=== PATIENT | male | born 1965 | race Two or more races ===

== ENCOUNTER 2023-02-26 18:06 | Emergency (ER) | payer BC, SELFPAY ==
[2023-02-26 18:11] VITALS: BP 144/95; PULSE 118; RESP 16; TEMP 36.7; O2SAT 100
[2023-02-26 19:00] LABS: Basophils Absolute Auto 0.1 K/mm3 (0.0-0.1); Basophils Percent Auto 0.7 % (0.2-1.2); Eosinophils Percent Auto 0.2 % (0-4.4); Hematocrit 48.4 % (42.0-52.0); Hemoglobin 15.5 g/dL (14.0-18.0); Immature Granulocyte Absolute 0.06 K/mm3 (0.00-0.031); Immature Granulocyte Percent A 0.5 % (0-0.5); Lymphocytes Absolute Auto 1.77 K/mm3 (0.9-3.2); Lymphocytes Percent Auto 16.1 % (18.3-44.2); Mean Corpuscular Hemoglobin 25.5 pg (26-34); Mean Corpuscular Volume 79.5 fl (80-100); Mean Platelet Volume 10.6 fl (7.4-10.4); Monocytes Absolute Auto 0.6 K/mm3 (0.1-0.6); Monocytes Percent Auto 5.6 % (2.6-8.5); Neutrophils Absolute Auto 8.5 K/mm3 (1.3-6.7); Neutrophils Percent Auto 76.9 % (45.5-73.1); Platelet Count Result 308 k/mm3 (150-375); Red Blood Count 6.09 M/mm3 (4.6-6.20); Red Cell Distribution Width 16.4 % (11.5-14.5)
[2023-02-26 19:08] VITALS: BP 145/109; PULSE 110; RESP 16; O2SAT 99
[2023-02-26] MEDS: SODIUM CHLORIDE 0.9% IV 1,000 ML 999 ML IV CONT (19:11)
[2023-02-26] MEDS: ONDANSETRON INJ 4 MG/2 ML VIAL IV PUSH (19:12)
[2023-02-26] MEDS: BELLADONNA ALK/PHENOB ELIX 10 ML, MAG HYDROX/ALUMINUM HYD/SIMETH 30 ML, LIDOCAINE HCL 2... PO (19:14)
--- NOTE | 2023-02-26 19:15 | ECG_ITS ---
Measurements Intervals [place] Rate: 98 P: 41 IN: 141 QRS: 20 QRSD: 77 T: 60 QT: 361 QTc: 461 Interpretive Statements SINUS RHYTHM POSSIBLE LEFT ATRIAL ENLARGEMENT CANNOT RULE OUT SEPTAL INFARCT, AGE INDETERMINATE BORDERLINE ST ABNORMALITY- DIFFUSE LEADS ABNORMAL ECG NO PREVIOUS ECG AVAILABLE FOR COMPARISON Electronically Signed On 02-27-2023 6:46:57 CDT by Darrell Hays D.O.
--- NOTE | 2023-02-26 19:15 | ED.GENADULT ---
HPI - General Adult General Chief complaint: Abdominal Pain Stated complaint: N/V X2D Time Seen by Provider: 02/26/23 18:46 History of Present Illness HPI narrative: 57-year-old male presented to the emergency department for evaluation of intermittent nausea vomiting and epigastric discomfort. Related Data Allergies Allergy/AdvReac Type Severity Reaction Status Date / Time No Known Allergies Allergy Verified 02/26/23 19:18 Review of Systems Review of Systems: All systems reviewed & are unremarkable except as noted in HPI and below Exam Narrative: APPEARANCE: Well appearing, no pain, no distress, well-nourished. HEAD: normocephalic, atraumatic. EYES: PERRLA/EOMI, conjunctivae clear. NOSE: Normal no drainage EARS:TMS clear with good light reflex. THROAT: Pharynx clear, no exudate. NECK: Supple. No adenopathy, no masses. RESPIRATORY: Airway patent, respirations nonlabored. Clear to auscultation bilaterally, no rales, rhonchi, wheezing. CARDIOVASCULAR: Regular rate and rhythm without murmurs rubs or gallops. ABDOMINAL: Soft, nontender, nondistended, normal bowel sounds MUSCULOSKELETAL: Moves all extremities. Strength/ROM intact, No edema, No calf tenderness. NEURO: Alert. Cranial nerves II through XII intact. Good gait. Good coordination SKIN: Warm, dry. Normal Color Course Course Emergency Course: 57-year-old male presented emergency department for evaluation of intermittent nausea and vomiting. Patient states that his nausea vomiting had resolved in the emergency department. Patient is anxious but otherwise well-appearing. Patient does admit to drinking alcohol. Suspect alcohol withdrawal. Patient was hypertensive but declined treatment in the emergency department. Patient family were updated and results of the work-up patient was encouraged to have a clear liquid diet for the next few days and was provided medications for nausea control. All question concerns were addressed and patient was comfortable with the plan for discharge and close follow-up. Vital Signs Vital signs: Vital Signs Temperature 98.1 F 02/26/23 18:11 Pulse Rate 118 H 02/26/23 18:11 Respiratory Rate 16 02/26/23 18:11 Blood Pressure 144/95 H 02/26/23 18:11 Pulse Oximetry 100 02/26/23 18:11 Oxygen Delivery Room Air 02/26/23 18:11 Temperature 98.1 F 02/26/23 18:11 Pulse Rate 110 H 02/26/23 21:04 Respiratory Rate 18 02/26/23 21:04 Blood Pressure 188/102 H 02/26/23 21:04 Pulse Oximetry 100 02/26/23 21:04 Oxygen Delivery Room Air 02/26/23 18:11 Medical Decision Making Differential Diagnosis Differential Diagnosis: Alcohol withdrawal, gastroenteritis, nausea vomiting diarrhea Vital Signs Vital Signs: Vital Signs Temperature 98.1 F 02/26/23 18:11 Pulse Rate 118 H 02/26/23 18:11 Respiratory Rate 16 02/26/23 18:11 Blood Pressure 144/95 H 02/26/23 18:11 Pulse Oximetry 100 02/26/23 18:11 Oxygen Delivery Room Air 02/26/23 18:11 Temperature 98.1 F 02/26/23 18:11 Pulse Rate 110 H 02/26/23 21:04 Respiratory Rate 18 02/26/23 21:04 Blood Pressure 188/102 H 02/26/23 21:04 Pulse Oximetry 100 02/26/23 21:04 Oxygen Delivery Room Air 02/26/23 18:11 Lab Data 02/26/23 18:55 02/26/23 18:55 Labs: Lab Results 02/26/23 Range/Units 18:55 WBC 11.0 H (4.5-10.0) K/mm3 RBC 6.09 (4.6-6.20) M/mm3 Hgb 15.5 (14.0-18.0) g/dL Hct 48.4 (42.0-52.0) % MCV 79.5 L (80-100) fl MCH 25.5 L (26-34) pg MCHC 32.0 (32-36) g/dl RDW 16.4 H (11.5-14.5) % Plt Count 308 (150-375) k/mm3 MPV 10.6 H (7.4-10.4) fl Immature Gran % (Auto) 0.5 (0-0.5) % Neut % (Auto) 76.9 H (45.5-73.1) % Lymph % (Auto) 16.1 L (18.3-44.2) % [place] % (Auto) 5.6 (2.6-8.5) % Eos % (Auto) 0.2 (0-4.4) % Baso % (Auto) 0.7 (0.2-1.2) % Lymph # (Auto) 1.77 (0.9-3.2) K/mm3 [place] # (Auto) 0.6 (0.1-0.6) K/mm3 Eos # (Auto) 0.0 (0-0.3) K/
[2023-02-26 19:26] LABS: Alanine Aminotransferase 20 U/L (6-50); Albumin Level 4.8 g/dL (3.5-5.1); Alkaline Phosphatase 58 U/L (38-126); Anion Gap 18 mmol/L (8-16); Aspartate Amino Transferase 23 U/L (17-59); Bilirubin,Total 1.3 mg/dL (0.2-1.3); Blood Urea Nitrogen 14 mg/dL (9-20); Calcium 9.1 mg/dL (8.4-10.2); Carbon Dioxide 18 mmol/L (22-30); Chloride 101 mmol/L (98-107); Estimated Glomerular Filt Rate > 60; Glucose 178 mg/dL (65-110); Potassium 3.9 mmol/L (3.4-5.0); Sodium 137 mmol/L (137-145)
[2023-02-26 20:18] VITALS: PULSE 96; RESP 18; O2SAT 100
[2023-02-26 21:04] VITALS: BP 188/102; PULSE 110; RESP 18; O2SAT 100
== END 2023-02-26 21:09 | disposition home or self-care (01) ==
PROVIDERS: Emergency Provider Emergency Medicine; PCP Family Medicine
DX: R11.2 Nausea with vomiting, unspecified (principal); R94.31 Abnormal electrocardiogram [ECG] [EKG]
CPT/HCPCS: 36415; 80053; 85025; 93005; 96361; 96374; 99284; A9270; J2405; J7030

== ENCOUNTER 2023-03-03 09:56 | Emergency (ER) | payer BC, SELFPAY ==
[2023-03-03] VITALS (10 sets, daily range): BP systolic 132–194; BP diastolic 80–132; PULSE 78–111; RESP 16–28; TEMP 36.3–37; O2SAT 98–100
--- NOTE | ~2023-03-03 | CT_ITS ---
CT of the Abdomen and Pelvis: Indication: Abdominal pain Technique: 2.5 mm axial scans were obtained through the abdomen and pelvis following intravenous adm inistration of 100 cc of Omnipaque 350. Dose reduction technique was used on this scan by utilizing a utomated exposure control and iterative reconstruction technique. The dose-length product (DLP) was 9 47.57 mGy-cm. Findings: Scans through the lung bases are unremarkable. The liver, spleen, pancreas, gallbladder, adrenals and kidneys are within normal limits. No evidence of aortic aneurysm. No lymphadenopathy. No bowel obstruction or bowel wall thickening. Normal appendix. Images through the pelvis were performed. Urinary bladder unremarkable. Prostate gland and seminal ve sicles are unremarkable. Impression: No significant abnormalities seen. Reviewed, dictated and finalized at [facility]. Impression: No significant abnormalities seen.
--- NOTE | ~2023-03-03 | XR_ITS ---
Portable chest x-ray Comparison: 06/19/2014 Clinical History: Pain, headache Findings: Lungs are clear, without focal consolidation or pleural effusion. Cardiomediastinal silho uette is stable. Bones and soft tissues are unremarkable. Impression: Clear lungs. Reviewed, dictated and finalized at location . Impression: Clear lungs.
--- NOTE | 2023-03-03 09:59 | ECG_ITS ---
Measurements Intervals [place] Rate: 97 P: 55 [place]: 143 QRS: 42 QRSD: 81 T: 50 QT: 357 QTc: 455 Interpretive Statements SINUS RHYTHM WITH SINUS ARRHYTHMIA BORDERLINE ST ABNORMALITY- DIFFUSE LEADS BORDERLINE ECG COMPARED TO ECG 02/26/2023 19:23:49 SINUS ARRHYTHMIA NOW PRESENT Electronically Signed On 03-03-2023 11:04:57 CDT by Darrell Hays D.O.
[2023-03-03] MEDS: ONDANSETRON INJ 4 MG/2 ML VIAL IV PUSH (10:28)
[2023-03-03 10:30] LABS: Basophils Absolute Auto 0.1 K/mm3 (0.0-0.1); Basophils Percent Auto 0.6 % (0.2-1.2); Eosinophils Percent Auto 0.1 % (0-4.4); Hematocrit 43.8 % (42.0-52.0); Hemoglobin 14.2 g/dL (14.0-18.0); Immature Granulocyte Absolute 0.01 K/mm3 (0.00-0.031); Immature Granulocyte Percent A 0.1 % (0-0.5); Lymphocytes Absolute Auto 1.33 K/mm3 (0.9-3.2); Lymphocytes Percent Auto 16.9 % (18.3-44.2); Mean Corpuscular HGB Conc 32.4 g/dl (32-36); Mean Corpuscular Hemoglobin 25.4 pg (26-34); Mean Corpuscular Volume 78.4 fl (80-100); Mean Platelet Volume 10.5 fl (7.4-10.4); Monocytes Absolute Auto 0.4 K/mm3 (0.1-0.6); Monocytes Percent Auto 5.5 % (2.6-8.5); Neutrophils Percent Auto 76.8 % (45.5-73.1); Platelet Count Result 288 k/mm3 (150-375); Red Blood Count 5.59 M/mm3 (4.6-6.20); White Blood Count 7.9 K/mm3 (4.5-10.0)
[2023-03-03 10:41] LABS: Alanine Aminotransferase 27 U/L (6-50); Albumin Level 4.7 g/dL (3.5-5.1); Alkaline Phosphatase 57 U/L (38-126); Anion Gap 15 mmol/L (8-16); Aspartate Amino Transferase 30 U/L (17-59); Blood Urea Nitrogen 13 mg/dL (9-20); Calcium 9.3 mg/dL (8.4-10.2); Carbon Dioxide 19 mmol/L (22-30); Chloride 103 mmol/L (98-107); Estimated CRCL calculation 85 ml/min; Estimated Glomerular Filt Rate > 60; Glucose 177 mg/dL (65-110); Lipase 584 U/L (23-300); Potassium 3.9 mmol/L (3.4-5.0); Sodium 137 mmol/L (137-145)
[2023-03-03 11:15] LABS: Appearance Urine Clear (Clear); Bacteria Urine None Seen /hpf; Bilirubin Urine Negative (Negative); Blood Urine Negative (Negative); Color Urine Yellow (Yellow); Glucose Urine UA 3+ mg/dL (Negative); Ketones Urine 2+ mg/dL (Negative); Leukocyte Esterase Ur Negative LEU/UL (Negative); Nitrate Urine Negative (Negative); Non Pathogenic Casts 0-2; Protein Urine 2+ mg/dL (Negative); RBC Urine 0-2 /hpf (0-2); Specific Grav Ur 1.024 (1.001-1.035); Squamous Epithelial Cell Urine None seen /hpf (Few); Urobilinogen Urine 0.2 mg/dL (<2.0); WBC Urine 0-5 /hpf; pH Urine 7.5 (5.0-9.0)
[2023-03-03 11:22] LABS: Add Urine Microscopic? YES
--- NOTE | 2023-03-03 11:30 | ED.GENADULT ---
HPI - General Adult General Chief complaint: Nausea/Vomiting/Diarrhea Stated complaint: Chest pain Time Seen by Provider: 03/03/23 10:15 Source: patient Mode of arrival: ambulatory Limitations: no limitations History of Present Illness HPI narrative: This is a 57-year-old male who presents to the ED with chief complaint of nausea and vomiting beginning this morning shortly after waking up. Patient states that he has had around 15 episodes of vomiting today. States he was seen here for the same a few days ago and was discharged in stable condition with nausea controlled. Today he states he is starting to have some left lower and left upper quadrant pain. He denies specific chest pain but points to his LUQ. Denies shortness of breath. Denies fevers or chills. Denies cough, urinary problems, problems with bowel movements. Related Data Allergies Allergy/AdvReac Type Severity Reaction Status Date / Time No Known Allergies Allergy Verified 02/26/23 19:18 Exam Narrative: GENERAL: Appears in pain. Breathing heavy. HEAD: Normocephalic, atraumatic. EYES: PERRLA and EOMI. ENT: Nares clear, no rhinorrhea or epistaxis. Mucous membranes moist. Oropharynx without tonsillar hypertrophy exudate or other lesions. NECK: Supple. No adenopathy or masses. CHEST: No respiratory distress. Clear to auscultation. No wheezes rales or rhonchi HEART: Regular rate and rhythm. No murmur heard. Normal peripheral pulses. ABDOMEN: Moderate left lower quadrant tenderness. Mild left upper quadrant tenderness. Soft, nondistended, normal active bowel sounds. Negative Shah sign. Negative McBurney's point. negative peritoneal signs. MSK: Normal range of motion. No edema. SKIN: Warm, dry, no rash. NEURO: Alert and oriented x3. No focal deficits. PSYCH: Normal mood and affect. Course Course Emergency Course: He is initially denying pain meds as they make him feel nauseous. Reevaluation 1230: Symptoms of nausea and pain have fully resolved. Reevaluation 1348: He is still somewhat tachycardic and tachypneic in the room. Appears anxious. I discussed alcohol use with him and he states he drinks 2-3 times a week and usually drinks around 4 beers with liquor when he drinks. He states his last drink was Monday. EtOH less than 10. Vital Signs Vital signs: Vital Signs Temperature 97.3 F L 03/03/23 10:14 Pulse Rate 80 03/03/23 10:14 Respiratory Rate 20 03/03/23 10:14 Blood Pressure 187/114 H 03/03/23 10:14 Pulse Oximetry 100 03/03/23 10:14 Oxygen Delivery Room Air 03/03/23 10:14 Temperature 98.6 F 03/03/23 14:22 Pulse Rate 78 03/03/23 14:22 Respiratory Rate 16 03/03/23 14:22 Blood Pressure 160/99 H 03/03/23 14:22 Pulse Oximetry 98 03/03/23 14:22 Oxygen Delivery Room Air 03/03/23 10:14 Medical Decision Making MDM Narrative Medical decision making narrative: This is a 57-year-old male who presents to the ED with chief complaint of nausea and vomiting sudden onset this morning about 5 hours prior to arrival. Vitals show tachycardia in the 110s to 120s. This improved greatly with fluids as he is now down in the 100s. He is slightly tachypneic. He has left lower quadrant tenderness on exam. Lab work is largely unremarkable. His lipase is elevated to 584, however liver labs are unremarkable. Blood sugar is 177. Lactic acid normal. Urinalysis significant for 2+ proteins, 3+ glucose, 2+ ketones. He does appear very dehydrated. He was given a bolus of 2 L of normal saline. He never needed any pain medications, and improved with Zofran and Phenergan. EKG unremarkable as well as negative serial troponins. Again reiterates that he is not having any chest pain or shortness of breath. Discussed with patient and his family members. They have his daughter on the phone who is a physician. We all came to agreement that with his negative work-up today and able to tolerate p.o. that he should be able t
[2023-03-03] MEDS: PROMETHAZINE HCL 25 MG/ML AMPUL 12.5 MG IV PUSH (11:52)
[2023-03-03 11:53] LABS: Troponin I < 0.012 ng/mL (0.000-0.034)
[2023-03-03] MEDS: SODIUM CHLORIDE 0.9% IV 1,000 ML 999 ML IV CONT ×2 (11:53)
[2023-03-03 13:55] LABS: Ethanol < 10 mg/dL (<10)
[2023-03-03 14:09] LABS: Troponin I < 0.012 ng/mL (0.000-0.034)
== END 2023-03-03 14:24 | disposition home or self-care (01) ==
PROVIDERS: Emergency Provider Physician Assistant; PCP Family Medicine
DX: R11.2 Nausea with vomiting, unspecified (principal); E86.0 Dehydration
CPT/HCPCS: 36415; 71045; 74177; 80053; 80307; 81001; 83690; 84484; 85025; 93005; 96361; 96374; 96375; 99284; J2405; J2550; J7030; Q9967

== ENCOUNTER 2023-03-05 14:33 | Observation (INO) | payer BC, SELFPAY ==
[2023-03-05] VITALS (19 sets, daily range): BP systolic 112–166; BP diastolic 77–127; PULSE 82–123; RESP 15–31; TEMP 36.6; O2SAT 97–100; BMI 33.3
--- NOTE | ~2023-03-05 | XR_ITS ---
XR chest 2V DATE: 03/05/2023 15:20 INDICATION: Nausea and vomiting for several days TECHNIQUE: PA and lateral views COMPARISON: 03/03/2023 portable AP chest FINDINGS: Normal heart size. No hilar or mediastinal enlargement. No pulmonary infiltrate or consolid ation, pleural effusion or pulmonary vascular congestion or pneumothorax is detected. Degenerative spurring of the thoracic spine. IMPRESSION: No active cardiac pulmonary disease Degenerative spurring of the thoracic spine Reviewed, dictated and finalized at location [facility].
--- NOTE | ~2023-03-05 | CT_ITS ---
EXAMINATION: CT brain wo con DATE: 03/05/2023 18:18 INDICATION: Persistent nausea and vomiting. Rule out intracranial mass lesion. TECHNIQUE: Computed tomography (CT) of the head was performed without intravenous contrast. The mA wa s adjusted according to patient size. Iterative reconstruction technique was employed. Exam dose: 60 5.33 mGy-cm total exam DLP. COMPARISON: 06/18/2014 CTA brain 06/18/2014 MR brain/brainstem 06/18/2014 CT brain FINDINGS: There is some intravenous contrast material on board from the CTA chest abdomen pelvis exam ination performed earlier same date. There is nonspecific diminished attenuation of the cerebral white matter, likely due to chronic small vessel ischemic changes. Bilateral carotid siphon internal carotid artery calcifications and basilar and bilateral vertebral artery calcifications are noted. No intracranial mass lesion or hemorrhage or cerebrovascular accident, midline shift shift or mass ef fect is detected. Minimal bilateral basal ganglia calcification. No subdural or epidural hematoma. Occasional right mastoid effusions are noted. The left mastoid air cells are normally developed and a erated. The included paranasal sinuses are unremarkable. No fracture or bone destruction of the cranial vault. IMPRESSION: Cerebral atherosclerosis and chronic small vessel ischemic changes of the cerebral white matter No acute intracranial finding Reviewed, dictated and finalized at [facility]. Reviewed, dictated and finalized at location [facility].
--- NOTE | ~2023-03-05 | CT_ITS ---
EXAMINATION: CTA chest abdomen pelvis DATE: 03/05/2023 16:26 INDICATION: Hypertension. Persistent nausea and vomiting. TECHNIQUE: Computed tomography angiography (CTA) of the chest, abdomen and pelvis was performed with 100 mL Omnipaque-350 intravenous contrast timed to evaluate the pulmonary arteries. Coronal maximum i ntensity projection 3D-reconstructions were created by the technologist. Automated exposure control a nd iterative reconstruction technique were employed. Exam dose: 1309.58 mGy-cm total exam DLP. COMPARISON: 03/05/2023 2 view chest 03/03/2023 CT abdomen pelvis FINDINGS: There is no evidence of pulmonary embolism. No thoracic aortic aneurysm or dissection. Heart size is within normal limits. No pericardial or pleural effusion. No hilar or mediastinal mass lesion or lymphadenopathy. Small sliding hiatal hernia. No pulmonary infiltrate or consolidation. The liver, gallbladder, bile ducts, spleen, pancreas, pancreatic duct, and adrenal glands and kidneys appear unremarkable. No urinary tract calculus or hydroureteronephrosis. There is diffuse thickening of the urinary bladder wall which may be due to mild prostatomegaly or cy stitis. Correlation with urinalysis is recommended. Normal caliber of the abdominal aorta. No intraperitoneal or retroperitoneal or pelvic mass lesion or adenopathy or ascites. Normal appendix. No bowel obstruction, bowel wall thickening, pneumatosis or intraperitoneal free air . Very small fat-containing umbilical hernia. The lungs are clear of infiltrate or consolidation. Degenerative changes of the cervical and thoracic and to a lesser extent lumbar spine. No suspicious osteolytic or osteoblastic lesions. IMPRESSION: Normal appendix; no bowel obstruction or free air Small sliding hiatal hernia Reviewed, dictated and finalized at [facility]. Reviewed, dictated and finalized at location A.
--- NOTE | 2023-03-05 14:41 | ECG_ITS ---
Measurements Intervals [place] Rate: 91 P: 51 GA: 139 QRS: 51 QRSD: 78 T: 66 QT: 324 QTc: 399 Interpretive Statements SINUS RHYTHM WITH SINUS ARRHYTHMIA CANNOT RULE OUT SEPTAL INFARCT, AGE INDETERMINATE ST-T WAVE ABNORMALITY IN DIFFUSE LEADS- CONSIDER ISCHEMIA ABNORMAL ECG COMPARED TO ECG 03/03/2023 10:07:57 MYOCARDIAL INFARCT FINDING NOW PRESENT ST-T WAVE ABNORMALITY IS WORSE Electronically Signed On 03-05-2023 16:24:50 CDT by Darrell Hays D.O.
[2023-03-05] MEDS: ONDANSETRON INJ 4 MG/2 ML VIAL IV PUSH (15:02)
[2023-03-05] MEDS: FAMOTIDINE 20 MG/2 ML VIAL IV PUSH (15:04)
[2023-03-05] MEDS: SODIUM CHLORIDE 0.9% IV 1,000 ML 999 ML IV CONT (15:05)
--- NOTE | 2023-03-05 15:08 | ED.GENADULT ---
HPI - General Adult General Chief complaint: Nausea/Vomiting/Diarrhea Stated complaint: headache/vomiting/high BP Time Seen by Provider: 03/05/23 14:54 History of Present Illness HPI narrative: 57 year old male history of HTN, DM presented with nausea/vomiting and no BM. Per patient, he has been having ongoing nausea and non bilious non bloody emesis for the past two days. He reports he was seen here previously and is having similar symptoms. Reports last BM 2 days ago. Is having flatus. Denied fevers/chills, chest pain, shortness of breath. Related Data Allergies Allergy/AdvReac Type Severity Reaction Status Date / Time No Known Allergies Allergy Verified 03/05/23 14:34 Review of Systems Review of Systems: See HPI Exam Narrative: General: Alert, calm and cooperative, no acute distress, phonating, sitting comfortably during visit HEENT: Pupils equal round and reactive to light, extra ocular movements intact, no conjunctival injection, head atraumatic, neck supple without meningismus Cardiovascular: Regular rate and rhythm, no visible jugular venous distension Respiratory: Lungs clear to auscultation bilaterally, no wheezing/rales/rhonchi Abdominal: soft, non-tender, non-distended, no guarding, no rebound/peritoneal signs, no costovertebral tenderness to palpation Back: no midline tenderness to palpation, no step offs Extremities: No edema, palpable peripheral pulses, warm, well perfused, no tenderness to bilateral calves Neurological: Alert, moving all extremities symmetrically Course Vital Signs Vital signs: Vital Signs Temperature 97.9 F 03/05/23 14:38 Pulse Rate 107 H 03/05/23 14:38 Respiratory Rate 22 H 03/05/23 14:38 Blood Pressure 160/103 H 03/05/23 14:38 Pulse Oximetry 100 03/05/23 14:38 Oxygen Delivery Room Air 03/05/23 14:38 Temperature 97.9 F 03/05/23 14:38 Pulse Rate 100 03/05/23 15:01 Respiratory Rate 26 H 03/05/23 15:01 Blood Pressure 156/115 H 03/05/23 15:01 Pulse Oximetry 100 03/05/23 15:01 Oxygen Delivery Room Air 03/05/23 14:38 Medical Decision Making MDM Narrative Medical decision making narrative: 57 year old male history of DM, HTN presented with nausea/vomiting, no BM in two days. Physical exam benign, abdomen soft and non tender, vitals stable. Differential diagnosis includes but not limited to: cholecystitis vs pancreatitis vs SBO. Bloodwork reviewed, lipase 600s, increase from prior. Trop x2 negative. EKG with TWI, unchanged x2, without STEMI or STEMI equivalents. CTA abd/pelv without acute intra-abdominal process. Patient continuing not to tolerate oral intake. History and exam suggestive of acute pancreatitis. IV fluids and anti-emetics given. Given acute nature of presenting disease process and potential for decompensation, the patient would benefit from medical admission for further optimization and management. Vital Signs Vital Signs: Vital Signs Temperature 97.9 F 03/05/23 14:38 Pulse Rate 107 H 03/05/23 14:38 Respiratory Rate 22 H 03/05/23 14:38 Blood Pressure 160/103 H 03/05/23 14:38 Pulse Oximetry 100 03/05/23 14:38 Oxygen Delivery Room Air 03/05/23 14:38 Temperature 97.9 F 03/05/23 14:38 Pulse Rate 100 03/05/23 15:01 Respiratory Rate 26 H 03/05/23 15:01 Blood Pressure 156/115 H 03/05/23 15:01 Pulse Oximetry 100 03/05/23 15:01 Oxygen Delivery Room Air 03/05/23 14:38 Lab Data 03/05/23 15:06 03/05/23 15:06 Labs: Lab Results 03/05/23 03/05/23 03/05/23 Range/Units 15:05 15:06 15:14 WBC 12.3 H (4.5-10.0) K/mm3 RBC 5.74 (4.6-6.20) M/mm3 Hgb 14.7 (14.0-18.0) g/dL Hct 44.6 (42.0-52.0) % MCV 77.7 L (80-100) fl MCH 25.6 L (26-34) pg MCHC 33.0 (32-36) g/dl RDW 15.0 H (11.5-14.5) % Plt Count 305 (150-375) k/mm3 MPV 10.9 H (7.4-10.4) fl Immature Gran % (Auto) 0.3 (0-0.5) % Neut % (Auto) 75.6 H (45.5-
[2023-03-05 15:11] LABS: Basophils Absolute Auto 0.1 K/mm3 (0.0-0.1); Basophils Percent Auto 0.6 % (0.2-1.2); Eosinophils Absolute Auto 0.1 K/mm3 (0-0.3); Eosinophils Percent Auto 0.9 % (0-4.4); Hematocrit 44.6 % (42.0-52.0); Hemoglobin 14.7 g/dL (14.0-18.0); Immature Granulocyte Absolute 0.04 K/mm3 (0.00-0.031); Immature Granulocyte Percent A 0.3 % (0-0.5); Lymphocytes Absolute Auto 2.06 K/mm3 (0.9-3.2); Lymphocytes Percent Auto 16.7 % (18.3-44.2); Mean Corpuscular Hemoglobin 25.6 pg (26-34); Mean Corpuscular Volume 77.7 fl (80-100); Mean Platelet Volume 10.9 fl (7.4-10.4); Monocytes Absolute Auto 0.7 K/mm3 (0.1-0.6); Monocytes Percent Auto 5.9 % (2.6-8.5); Neutrophils Absolute Auto 9.3 K/mm3 (1.3-6.7); Neutrophils Percent Auto 75.6 % (45.5-73.1); Platelet Count Result 305 k/mm3 (150-375); Red Blood Count 5.74 M/mm3 (4.6-6.20); White Blood Count 12.3 K/mm3 (4.5-10.0)
[2023-03-05 15:20] LABS: Lactic Acid Reflex 1.5 mmol/L (0.7-2.0)
[2023-03-05 15:25] LABS: Appearance Urine Cloudy (Clear); Bacteria Urine None Seen /hpf; Bilirubin Urine Negative (Negative); Blood Urine Negative (Negative); Color Urine Yellow (Yellow); Glucose Urine UA 3+ mg/dL (Negative); Ketones Urine 1+ mg/dL (Negative); Leukocyte Esterase Ur Negative LEU/UL (Negative); Nitrate Urine Negative (Negative); Non Pathogenic Casts 0-2; Protein Urine 1+ mg/dL (Negative); RBC Urine 0-2 /hpf (0-2); Squamous Epithelial Cell Urine None seen /hpf (Few); Urobilinogen Urine 0.2 mg/dL (<2.0); WBC Urine 0-5 /hpf
[2023-03-05 15:34] LABS: Troponin I < 0.012 ng/mL (0.000-0.034)
[2023-03-05 15:35] LABS: Ethanol < 10 mg/dL (<10)
[2023-03-05 15:40] LABS: Add Urine Microscopic? YES
[2023-03-05 15:53] LABS: Alanine Aminotransferase 25 U/L (6-50); Albumin Level 4.6 g/dL (3.5-5.1); Alkaline Phosphatase 49 U/L (38-126); Anion Gap 18 mmol/L (8-16); Aspartate Amino Transferase 31 U/L (17-59); Bilirubin,Total 1.3 mg/dL (0.2-1.3); Blood Urea Nitrogen 18 mg/dL (9-20); Calcium 9.1 mg/dL (8.4-10.2); Carbon Dioxide 14 mmol/L (22-30); Chloride 98 mmol/L (98-107); Estimated CRCL calculation 61 ml/min; Estimated Glomerular Filt Rate 57; Glucose 167 mg/dL (65-110); Lipase 675 U/L (23-300); Potassium 3.8 mmol/L (3.4-5.0); Sodium 130 mmol/L (137-145)
--- NOTE | 2023-03-05 17:05 | ECG_ITS ---
Measurements Intervals [place] Rate: 104 P: 44 [place]: 145 QRS: 52 QRSD: 73 T: 142 QT: 337 QTc: 445 Interpretive Statements SINUS TACHYCARDIA POSSIBLE LEFT ATRIAL ENLARGEMENT CANNOT RULE OUT SEPTAL INFARCT, AGE INDETERMINATE ST-T WAVE ABNORMALITY IN ANTEROLAT/INF LEADS- CONSIDER ISCHEMIA BASELINE ARTIFACT- III, AVL ABNORMAL ECG COMPARED TO ECG 03/05/2023 14:46:09 SINUS TACHYCARDIA NOW PRESENT Electronically Signed On 03-05-2023 21:13:50 CDT by Darrell Hays D.O.
[2023-03-05] MEDS: METOCLOPRAMIDE HCL INJ 10 MG/2 ML VIAL IV PUSH (18:05)
[2023-03-05] MEDS: MORPHINE SULFATE (*CRX) 2 MG/ML INJ IV PUSH (18:05)
[2023-03-05 18:33] LABS: Troponin I < 0.012 ng/mL (0.000-0.034)
--- NOTE | 2023-03-05 19:11 | PM.IMHP ---
H&P: HPI History of Present Illness Date/Time: 03/05/23 19:11 Chief Complaint: nausea Narrative: This is a 57-year-old male patient who has a history of uncontrolled diabetes and hypertension. The patient has been have nausea vomiting and the stated he had some diarrhea too. He had non bilious non bloody emesis for the past 2 days. His states that she he has had a peptic ulcer in the past. No fever or chills. No shortness of breath. His white count is 12.3. Sodium is 130. Glucose is 167. Troponin is negative x2. The patient has cloudy urine with 1+ protein 3+ glucose and 1+ ketones. Head CT was read as followsCerebral atherosclerosis and chronic small vessel ischemic changes of the cerebral white matter No acute intracranial finding. Chest abdominal x-rayNormal appendix; no bowel obstruction or free air Small sliding hiatal hernia. He was given IV fluids, Pepcid Zofran, Reglan and morphine in the emergency room. The patient was made NPO. He is being admitted to observation status on the date of service of 03/05/2023. Review of Systems Review of Systems: All systems reviewed & are unremarkable except as noted in HPI and below Constitutional: Constitutional: Reports as per HPI and Reports no additional constitutional complaints Eyes: Eyes: Reports as per HPI and Reports no additional eye complaints ENT: Reports system reviewed and no additional complaints, except as documented and Reports Normal hearing present Cardiovascular: Cardiovascular: Reports no additional cardiovascular complaints Respiratory: Respiratory: Reports no additional respiratory complaints and Reports no additional respiratory complaints Gastrointestinal: Gastrointestinal: Reports as per HPI and Reports no additional gastrointestinal complaints Musculoskeletal: Musculoskeletal: Reports no additional musculoskeletal complaints Integumentary/Breasts: Skin/Breast: Reports system reviewed and no additional complaints, except as docu and Reports as per HPI Neurologic: Reports system reviewed and no additional complaints, except as documented, Reports as per HPI and Reports Normal hearing present Psychiatric: Psychiatric: Reports no additional psychiatric complaints and Reports as per HPI Endocrine: Endocrine: Reports no additional endocrine complaints Hematologic/Lymphatic: Hematologic/Lymphatic: Reports no additional hematologic/lymphatic complaints Allergic/Immunologic: Allergic/Immunologic: Reports no additional allergic/immunologic complaints [facility] Past Medical History Medical History (Updated 03/05/23 @ 22:23 by Elissa Valente NP) Diabetes HTN (hypertension), malignant Hyperlipidemia type II Surgical History Surgical History No history of previous surgery Family History Family History Father Acute myocardial infarction History of blood clots Social History Social History (Updated 03/05/23 @ 22:21 by Elissa Valente NP) Social History: He is and has no children. 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 He occasional drinks beer / alcohol. He has never smoked. No illicit drugs but he does use chewing tobacco his is the durable power civil attorney for healthcare. Code status full code Smoking status: Never smoker Smokeless tobacco user: chewing tobacco Alcohol intake: current Drinks per week: 40 Substance use: never Lack of Transportation: No Lack of Food: Never True Current Housing: I Have Housing Concerned About Future Housing: No Difficulty Paying Gas/Electric Bills: No Difficulty Paying for Meds: No Currently Unemployed: No Education: Associate Degree Difficulty w/ Childcare or Family Care: No Spiritual care concerns: No Meds Home Medications and Allergies Home Medications Medication Instructions Recorded Confirmed Type ondansetron 4 mg disintegrating 4 mg PO Q8H P
--- NOTE | 2023-03-05 20:14 | ADMGEN ---
This patient, Rios Diaz, was admitted to Medical Room 251-01. Patient/family oriented to hospital policies and general routines including ID bracelet, bed and alarms, visiting hours, pain management, procedures, bathroom and other care routines, personal items, smoking policy, room service/diet, and visiting hours. Information on how to activate the Rapid Response Team has been discussed. Patient/Family are encouraged to report perceived risks to care and to ask questions if they do not understand what they are told or what they should do.
[2023-03-05 23:12] LABS: Glucose Point of Care 135 mg/dl (65-105)
[2023-03-05] MEDS: SODIUM CHLORIDE 0.9% IV 1,000 ML 100 ML IV CONT (23:15)
[2023-03-06 05:26] LABS: Basophils Absolute Auto 0.1 K/mm3 (0.0-0.1); Basophils Percent Auto 0.7 % (0.2-1.2); Eosinophils Absolute Auto 0.2 K/mm3 (0-0.3); Eosinophils Percent Auto 2.3 % (0-4.4); Hematocrit 44.6 % (42.0-52.0); Hemoglobin 14.2 g/dL (14.0-18.0); Immature Granulocyte Absolute 0.03 K/mm3 (0.00-0.031); Immature Granulocyte Percent A 0.3 % (0-0.5); Lymphocytes Absolute Auto 2.77 K/mm3 (0.9-3.2); Lymphocytes Percent Auto 27.4 % (18.3-44.2); Mean Corpuscular HGB Conc 31.8 g/dl (32-36); Mean Corpuscular Hemoglobin 25.3 pg (26-34); Mean Corpuscular Volume 79.4 fl (80-100); Mean Platelet Volume 10.4 fl (7.4-10.4); Monocytes Absolute Auto 0.9 K/mm3 (0.1-0.6); Monocytes Percent Auto 8.7 % (2.6-8.5); Neutrophils Absolute Auto 6.1 K/mm3 (1.3-6.7); Neutrophils Percent Auto 60.6 % (45.5-73.1); Platelet Count Result 291 k/mm3 (150-375); Red Blood Count 5.62 M/mm3 (4.6-6.20); White Blood Count 10.1 K/mm3 (4.5-10.0)
[2023-03-06 05:33] LABS: Hemoglobin A1C 7.7 % (<5.7)
[2023-03-06 05:44] LABS: Lactic Acid Reflex 0.9 mmol/L (0.7-2.0)
[2023-03-06 05:48] LABS: Alanine Aminotransferase 21 U/L (6-50); Albumin Level 4.2 g/dL (3.5-5.1); Alkaline Phosphatase 30 U/L (38-126); Anion Gap 16 mmol/L (8-16); Aspartate Amino Transferase 26 U/L (17-59); Bilirubin,Total 1.1 mg/dL (0.2-1.3); Blood Urea Nitrogen 15 mg/dL (9-20); Calcium 8.5 mg/dL (8.4-10.2); Carbon Dioxide 19 mmol/L (22-30); Chloride 102 mmol/L (98-107); Estimated CRCL calculation 72 ml/min; Estimated Glomerular Filt Rate > 60; Glucose 117 mg/dL (65-110); Lipase 536 U/L (23-300); Potassium 3.9 mmol/L (3.4-5.0); Sodium 137 mmol/L (137-145)
[2023-03-06 06:00] VITALS: BP 92/61; PULSE 8; RESP 18; TEMP 36.6; O2SAT 100
[2023-03-06 06:19] LABS: Thyroid Stimulating Hormone Reflex 0.737 uIU/mL (0.465-4.68)
[2023-03-06 08:30] VITALS: BP 120/93; PULSE 83; RESP 14; O2SAT 100
[2023-03-06] MEDS: lisinopriL 20 MG TABLET PO (08:32)
[2023-03-06] MEDS: FAMOTIDINE 20 MG/2 ML VIAL IV PUSH ×2 (08:32→20:33)
[2023-03-06] MEDS: LACTATED RINGERS 1,000 ML 999 ML IV CONT (08:41)
[2023-03-06] MEDS: SODIUM CHLORIDE 0.9% IV 1,000 ML 100 ML IV CONT ×2 (10:30→20:33)
[2023-03-06 12:04] LABS: Glucose Point of Care 133 mg/dl (65-105)
[2023-03-06 12:44] LABS: Cholesterol 87 mg/dL (0-200); HDL Direct 38 mg/dL; Triglycerides 131 mg/dL (<150)
--- NOTE | 2023-03-06 12:50 | PM.IMPN ---
Progress Note: A&P Assessment and Plan (1) Nausea and vomiting in adult: Code(s): R11.2 - Nausea with vomiting, unspecified Status: Acute Assessment and Plan: Third visit to the ER 1st hospitalization for this complaint status post initiation of Rebelsys. Patient was treated with IV fluids and anti emetics kept NPO overnight. This morning he states he feels well no further nausea or vomiting. Plan is to start clear liquid diet and advanced as tolerated. Patient noted to be lacto-ovo vegetarian. (2) Elevated lipase: Code(s): R74.8 - Abnormal levels of other serum enzymes Status: Acute Assessment and Plan: Initial lipase elevated slowly coming down will continue daily draws until discharge or normal finding. (3) Diabetes: Code(s): E11.9 - Type 2 diabetes mellitus without complications Status: Acute Assessment and Plan: Patient on several medications for diabetes including recently starting Rebelsys. Will use Accu-Chek with sliding scale insulin and other home medications but discontinue Rebelsys. A1c 7.7 (4) HTN (hypertension), malignant: Code(s): I10 - Essential (primary) hypertension Status: Acute Assessment and Plan: One low blood pressure reading overnight otherwise stable. (5) Hyperlipidemia type II: Code(s): E78.01 - Familial hypercholesterolemia Status: Acute Assessment and Plan: Continue home medications. Plan Continue IV fluids while advancing diet as tolerated. Recheck labs including lipase in the morning. GI plans to do EGD tomorrow. Consider discharge after EGD if tolerating diet. Time Spent With Patient Time with patient: 25 - 35 minutes Subjective Date/time seen: 03/06/23 12:50 Interval history: 03/06 Rounding: Patient seen seated upright in bed. He states that his nausea and vomiting have improved, he has no pain. He states that he is feeling much better. Patient reports that this is his third ER visit this week, first hospitalization for this problem. Patient notes he started Rebelsys recently and we suspect that his lipase elevation along with recurrent nausea and vomiting is related to this medication. Patient instructed to stop this medication effective immediately. Patient denies any other complaints or symptoms. Review of Systems Review of Systems: All systems reviewed & are unremarkable except as noted in HPI and below Exam Const: General: cooperative, comfortable, no acute distress, well developed, alert, awake, Physically active, average body habitus and well nourished Nutritional Appearance: average body habitus and well nourished Orientation/consciousness: oriented to person, oriented to place, oriented to time and patient oriented x3 Limitations: no limitations HENMT: Head: normal to inspection, No palpable skull fracture present, normocephalic and atraumatic Ears: hearing grossly normal bilaterally and external ears normal Face/Nose/Sinus: Normal external nose present and Normal nares present Eyes: General: appearance normal, both eyes and all related structures Alignment and Position: alignment normal Periorbital: periorbital findings normal Eyelids: eyelids normal Sclera: sclerae normal Pupils: Equal, round and reactive pupils present EOM: EOMs intact bilaterally Neck: Neck: normal visual inspection, full ROM, no lymphadenopathy, trachea midline and supple Chest: Chest palpation & inspection: normal inspection of the chest Resp: Effort & Inspection: normal respiratory effort Auscultation: clear to auscultation bilaterally Cardio: Palpation: normal PMI Rate: regular rate Rhythm: regular rhythm Heart sounds: S1 normal heart sound present and S2 normal heart sound present Peripheral pulses: Peripheral pulses 2+ throughout GI: Inspection: normal to inspection Auscultation: normal bowel sounds Back/Spine/Pelvis: Cervical Spine: cervical ROM normal Skin: General skin exam: normal color L
[2023-03-06 12:56] LABS: LDL Cholesterol Direct < 30 mg/dL
[2023-03-06 14:04] VITALS: BMI 33.3
[2023-03-06 14:35] VITALS: BP 137/90; PULSE 83; RESP 16; TEMP 36.4; O2SAT 97
--- NOTE | 2023-03-06 14:50 | PM.HPGS ---
History of Present Illness History of Present Illness Consent: Risks, benefits, and alternatives have been discussed and questions answered. Patient agrees to proceed with procedure. Chief complaint: Nausea and vomiting Narrative: Rios Diaz is a 57 year old male I am asked to see at the request of the hospitalist service because of cyclical nausea vomiting over the last week. Patient has a distant history of alcohol abuse and has stopped. He has a distant history of peptic ulcer. Patient reports being in usual state of health until 1 week ago he had a episode of nausea vomiting cause severe epigastric chest pain as well as a headache. This happened for 1 day and subsequently abated. He did well until this last weekend when he had several cycling episodes of this on Monday and then again on Monday. This prompted him to come to the emergency room to be admitted to the hospital. He was started on IV fluids and feels much better today. Patient has not had similar symptoms to this in the past. His past medical history includes hyperlipidemia. In the emergency room his lipase was noted to be elevated to the 5-[address] scan reveal noted evidence of pancreatitis. No other definitive diagnosis was identified. Family history is noncontributory. Patient has had no recent change in medications. He states within the last 5 months he was placed on Rybelsus. Review of Systems Review of Systems: Review persist contributory. [facility] Past Medical History Medical History (Updated 03/06/23 @ 14:53 by Tyrell Don MD) Diabetes HTN (hypertension), malignant Hyperlipidemia type II Surgical History Surgical History No history of previous surgery Family History Family History Father Acute myocardial infarction History of blood clots Social History Social History (Updated 03/05/23 @ 22:21 by Elissa Valente NP) Social History: He is and has no children. 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 He occasional drinks beer / alcohol. He has never smoked. 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 Code status full code Smoking status: Never smoker Smokeless tobacco user: chewing tobacco Alcohol intake: current Drinks per week: 40 Substance use: never Lack of Transportation: No Lack of Food: Never True Current Housing: I Have Housing Concerned About Future Housing: No Difficulty Paying Gas/Electric Bills: No Difficulty Paying for Meds: No Currently Unemployed: No Education: Associate Degree Difficulty w/ Childcare or Family Care: No Spiritual care concerns: No Meds Home Medications and Allergies Home Medications Medication Instructions Recorded Confirmed Type ondansetron 4 mg disintegrating 4 mg PO Q8H PRN nausea and 02/26/23 03/05/23 Rx tablet vomiting #14 tabs amlodipine 10 mg tablet 10 mg PO DAILY 03/05/23 03/05/23 History aspirin 81 mg tablet 81 mg PO DAILY 03/05/23 03/05/23 History atorvastatin 40 mg tablet 40 mg PO DAILY 03/05/23 03/05/23 History empagliflozin 25 mg tablet 25 mg PO DAILY 03/05/23 03/05/23 History (Jardiance) lisinopril 20 mg tablet 20 mg PO DAILY 03/05/23 03/05/23 History metformin 1,000 mg tablet 1,000 mg PO BID 03/05/23 03/05/23 History semaglutide 3 mg tablet (Rybelsus) 3 mg PO DAILY 03/05/23 03/05/23 History sitagliptin phosphate 100 mg 100 mg PO DAILY 03/05/23 03/05/23 History tablet (Januvia) Allergies Allergy/AdvReac Type Severity Reaction Status Date / Time No Known Allergies Allergy Verified 03/05/23 14:34 Vital Signs Vital Signs - 24 hr 03/05/23 14:55 03/05/23 14:57 03/05/23 15:00 Temperature Pulse Rate 101 H 105 H 91 Respiratory Rate 25 H 21 H 28 H Blood Pressure 166/127 H Pulse Oximetry 100 100 100 Oxygen Delivery 03/05/23 15:01
[2023-03-06 18:00] LABS: Glucose Point of Care 136 mg/dl (65-105)
[2023-03-06 19:30] LABS: IFOB Positive Control Positive; Immunochemical Fecal Occult Bl Negative (N)
--- NOTE | 2023-03-06 19:43 | PC.NURSE ---
Changed accucheck and insulin orders from Q6 to ACHS and TID w/ meals respectively due to patient being on diabetic diet now.
[2023-03-06 20:23] VITALS: BP 152/99; PULSE 84; RESP 18; TEMP 36.6; O2SAT 100
[2023-03-06 20:48] LABS: Glucose Point of Care 191 mg/dl (65-105)
[2023-03-06] MEDS: ONDANSETRON INJ 4 MG/2 ML VIAL IV PUSH (23:42)
[2023-03-06] MEDS: MORPHINE SULFATE (*CRX) 2 MG/ML INJ IV PUSH (23:46)
[2023-03-07] VITALS (9 sets, daily range): BP systolic 124–166; BP diastolic 82–110; PULSE 81–98; RESP 18–22; TEMP 36.1–36.5; O2SAT 96–100
[2023-03-07] MEDS: LORazepam INJ (*CRX) 2 MG/ML VIAL 1 MG IV PUSH (01:34)
[2023-03-07] MEDS: ONDANSETRON INJ 4 MG/2 ML VIAL IV PUSH (01:34)
[2023-03-07 05:34] LABS: Alanine Aminotransferase 19 U/L (6-50); Albumin Level 3.6 g/dL (3.5-5.1); Alkaline Phosphatase 33 U/L (38-126); Anion Gap 11 mmol/L (8-16); Aspartate Amino Transferase 20 U/L (17-59); Bilirubin,Total 0.7 mg/dL (0.2-1.3); Blood Urea Nitrogen 11 mg/dL (9-20); Calcium 8.3 mg/dL (8.4-10.2); Carbon Dioxide 20 mmol/L (22-30); Chloride 106 mmol/L (98-107); Estimated CRCL calculation 97 ml/min; Estimated Glomerular Filt Rate > 60; Glucose 131 mg/dL (65-110); Lipase 493 U/L (23-300); Potassium 3.8 mmol/L (3.4-5.0); Sodium 137 mmol/L (137-145)
[2023-03-07 05:38] LABS: Hematocrit 41.5 % (42.0-52.0); Hemoglobin 13.2 g/dL (14.0-18.0); Mean Corpuscular HGB Conc 31.8 g/dl (32-36); Mean Corpuscular Hemoglobin 25.7 pg (26-34); Mean Corpuscular Volume 80.7 fl (80-100); Mean Platelet Volume 11.3 fl (7.4-10.4); Platelet Count Result 276 k/mm3 (150-375); Red Blood Count 5.14 M/mm3 (4.6-6.20); White Blood Count 9.5 K/mm3 (4.5-10.0)
[2023-03-07] MEDS: SODIUM CHLORIDE 0.9% IV 1,000 ML 100 ML IV CONT ×2 (05:53→17:44)
[2023-03-07] MEDS: LACTATED RINGERS 1,000 ML 150 ML IV CONT (08:29)
--- NOTE | 2023-03-07 08:55 | WPDANESEPPF ---
Anes - Initial Pre Proc Eval Procedure: Operation Date: 03/07/23 13:45 Proposed Procedures p Esophagogastroduodenoscopy - Tyrell Don MD Date/Time: 03/07/23 08:55 Surgeon: Robin Urban MD Pre Op Diagnosis: Nausea and vomiting Patient Data Age: 57 Gender: M Height: 1.68 m Weight: 93.6 kg Last Vital Signs Temp 97.6 F 03/07/23 08:10 Pulse 97 03/07/23 08:10 Resp 18 03/07/23 08:10 BP 163/107 H 03/07/23 08:10 Pulse Ox 100 03/07/23 08:10 O2 Del Method Room Air 03/07/23 08:10 Allergies Allergy/AdvReac Type Severity Reaction Status Date / Time No Known Allergies Allergy Verified 03/07/23 08:24 Home Medications Medication Instructions Recorded Confirmed Type ondansetron 4 mg disintegrating 4 mg PO Q8H PRN nausea and 02/26/23 03/05/23 Rx tablet vomiting #14 tabs amlodipine 10 mg tablet 10 mg PO DAILY 03/05/23 03/05/23 History aspirin 81 mg tablet 81 mg PO DAILY 03/05/23 03/05/23 History atorvastatin 40 mg tablet 40 mg PO DAILY 03/05/23 03/05/23 History empagliflozin 25 mg tablet 25 mg PO DAILY 03/05/23 03/05/23 History (Jardiance) lisinopril 20 mg tablet 20 mg PO DAILY 03/05/23 03/05/23 History metformin 1,000 mg tablet 1,000 mg PO BID 03/05/23 03/05/23 History semaglutide 3 mg tablet (Rybelsus) 3 mg PO DAILY 03/05/23 03/05/23 History sitagliptin phosphate 100 mg 100 mg PO DAILY 03/05/23 03/05/23 History tablet (Januvia) Laboratory Tests 03/06/23 03/06/23 03/06/23 05:07 12:01 17:32 WBC RBC Hgb Hct MCV MCH MCHC RDW Plt Count MPV Sodium Potassium Chloride Carbon Dioxide Anion Gap BUN Creatinine Estim Creat Clear Calc Estimated GFR Glucose POC Capillary Glucose 133 H mg/dl (65-105) Calcium Total Bilirubin AST ALT Alkaline Phosphatase Total Protein Albumin Triglycerides 131 mg/dL (<150) Cholesterol 87 mg/dL (0-200) LDL Cholesterol Direct < 30 mg/dL HDL Direct 38 mg/dL Lipase Stl Occult Blood (IFOB) Negative (N) 03/06/23 03/06/23 03/07/23 17:58 20:36 04:55 WBC 9.5 K/mm3 (4.5-10.0) RBC 5.14 M/mm3 (4.6-6.20) Hgb 13.2 L g/dL (14.0-18.0) Hct 41.5 L % (42.0-52.0) MCV 80.7 fl (80-100) MCH 25.7 L pg (26-34) MCHC 31.8 L g/dl (32-36) RDW 15.0 H % (11.5-14.5) Plt Count 276 k/mm3 (150-375) MPV 11.3 H fl (7.4-10.4) Sodium 137 mmol/L (137-145) Potassium 3.8 mmol/L (3.4-5.0) Chloride 106 mmol/L (98-107) Carbon Dioxide 20 L mmol/L (22-30) Anion Gap 11 mmol/L (8-16) BUN 11 mg/dL (9-20) Creatinine 0.80 mg/dL (0.7-1.3) Estim Creat Clear Calc 97 ml/min Estimated GFR > 60 (59 - ) Glucose 131 H mg/dL (65-110) POC Capillary Glucose 136 H mg/dl 191 H mg/dl (65-105) (65-105) Calcium 8.3 L mg/dL (8.4-10.2) Total Bilirubin 0.7 mg/dL (0.2-1.3) AST 20 U/L (17-59) ALT 19 U/L (6-50) Alkaline Phosphatase 33 L U/L (38-126) Total Protein 7.0 g/dL (6.3-8.2) Albumin 3.6 g/dL (3.5-5.1) Triglycerides Cholesterol LDL Cholesterol Direct HDL Direct Lipase 493 H U/L (23-300) Stl Occult Blood (IFOB) Patient hx anesthesia problems: none Family hx anesthesia problems: none Results Review: All pre-operative results and documents have been reviewed as part of the pre-operative evalua
[2023-03-07] MEDS: FAMOTIDINE 20 MG/2 ML VIAL IV PUSH ×2 (09:55→21:50)
[2023-03-07] MEDS: lisinopriL 20 MG TABLET PO (09:55)
--- NOTE | 2023-03-07 09:57 | PM.DS ---
DS: Summary Time Spent with Patient Time attestation: Total time spent providing and/or coordinating discharge services: DS: Data Data Completed and Pending Labs on day of discharge: Labs from last 24 hours 03/07/23 03/06/23 03/06/23 04:55 20:36 17:58 WBC 9.5 RBC 5.14 Hgb 13.2 L Hct 41.5 L MCV 80.7 MCH 25.7 L MCHC 31.8 L RDW 15.0 H Plt Count 276 MPV 11.3 H Sodium 137 Potassium 3.8 Chloride 106 Carbon Dioxide 20 L Anion Gap 11 BUN 11 Creatinine 0.80 Estim Creat Clear Calc 97 Estimated GFR > 60 Glucose 131 H POC Capillary Glucose 191 H 136 H Calcium 8.3 L Total Bilirubin 0.7 AST 20 ALT 19 Alkaline Phosphatase 33 L Total Protein 7.0 Albumin 3.6 Triglycerides Cholesterol LDL Cholesterol Direct HDL Direct Lipase 493 H Stl Occult Blood (IFOB) 03/06/23 03/06/23 03/06/23 17:32 12:01 05:07 WBC RBC Hgb Hct MCV MCH MCHC RDW Plt Count MPV Sodium Potassium Chloride Carbon Dioxide Anion Gap BUN Creatinine Estim Creat Clear Calc Estimated GFR Glucose POC Capillary Glucose 133 H Calcium Total Bilirubin AST ALT Alkaline Phosphatase Total Protein Albumin Triglycerides 131 Cholesterol 87 LDL Cholesterol Direct < 30 HDL Direct 38 Lipase Stl Occult Blood (IFOB) Negative Discharge Plan Discharge Attending physician on discharge: Len Coleman Consulting providers: Juice Garcia; Tyrell Don Discharging Clinician: Juice Garcia Anticipated Discharge Date/Time: 03/07/23 12:00 Patient Disposition: Home, Self-Care Activity: unlimited and as tolerated Diet: diabetic Patient Instructions: Antibiotic Form, Pancreatitis (DC), Pain Management (DC) Stand Alone Forms: General Discharge Information, Work/School Release IP Follow-up/Referrals: Joe,MD Ran [Primary Care Provider] - Discharge Medications: New ondansetron 4 mg tablet,disintegrating 4 mg PO Q6H PRN (Reason: nausea and vomiting) Qty: 20 0RF metoclopramide HCl 10 mg tablet 10 mg PO Q6H PRN (Reason: nausea and vomiting) Qty: 20 0RF Continued ondansetron 4 mg tablet,disintegrating 4 mg PO Q8H PRN (Reason: nausea and vomiting) Qty: 14 0RF atorvastatin 40 mg tablet 40 mg PO DAILY lisinopril 20 mg tablet 20 mg PO DAILY amlodipine 10 mg tablet 10 mg PO DAILY metformin 1,000 mg tablet 1,000 mg PO BID Adult Low Dose Aspirin 81 mg Tablet 81 mg PO DAILY Januvia 100 mg Tablet 100 mg PO DAILY Jardiance 25 mg Tablet 25 mg PO DAILY Discontinued Rybelsus 3 mg Tablet 3 mg PO DAILY Date of admission: 03/05/23 18:48 Primary Care Provider: Joe,[facility] Admitting Provider: Robin Urban Attending physician on admission: Robin Urban Condition: Stable
[2023-03-07 10:09] LABS: Glucose Point of Care 126 mg/dl (65-105)
[2023-03-07 11:51] LABS: Glucose Point of Care 141 mg/dl (65-105)
[2023-03-07 12:00] LABS: Glucose Point of Care 212 mg/dl (65-105)
[2023-03-07] MEDS: INSULIN ASPART (*BKC) 100 UNITS/ML SUB-Q (12:17)
[2023-03-07] MEDS: BISACODYL 5 MG TABLET EC PO (12:54)
--- NOTE | 2023-03-07 15:52 | PM.IMPN ---
Progress Note: A&P Assessment and Plan (1) Nausea and vomiting in adult: Code(s): R11.2 - Nausea with vomiting, unspecified Status: Acute Assessment and Plan: Third visit to the ER 1st hospitalization for this complaint status post initiation of Rybelsus. Patient was treated with IV fluids and anti emetics kept NPO overnight. This morning he states he feels well no further nausea or vomiting. Plan is to start clear liquid diet and advanced as tolerated. Patient noted to be lacto-ovo vegetarian. Tolerating diet well. Advancing well. (2) Elevated lipase: Code(s): R74.8 - Abnormal levels of other serum enzymes Status: Acute Assessment and Plan: Initial lipase elevated slowly coming down will continue daily draws until discharge or normal finding. (3) Diabetes: Code(s): E11.9 - Type 2 diabetes mellitus without complications Status: Acute Assessment and Plan: Patient on several medications for diabetes including recently starting Rybelsus. Will use Accu-Chek with sliding scale insulin and other home medications but discontinue Rybelsus. A1c 7.7 (4) HTN (hypertension), malignant: Code(s): I10 - Essential (primary) hypertension Status: Acute Assessment and Plan: Elevated this afternoon, hydralazine ordered as well as Tylenol for headache. (5) Hyperlipidemia type II: Code(s): E78.01 - Familial hypercholesterolemia Status: Acute Assessment and Plan: Continue home medications. Plan Continue to advance diet. Discharge ok when patient has another bowel movement. Time Spent With Patient Time with patient: 25 - 35 minutes Subjective Date/time seen: 03/07/23 15:52 Interval history: 03/06 Rounding: Patient seen seated upright in bed. He states that his nausea and vomiting have improved, he has no pain. He states that he is feeling much better. Patient reports that this is his third ER visit this week, first hospitalization for this problem. Patient notes he started Rebelsys recently and we suspect that his lipase elevation along with recurrent nausea and vomiting is related to this medication. Patient instructed to stop this medication effective immediately. Patient denies any other complaints or symptoms. 03/07 Rounding: Patient back to floor after EGD. EGD noted to be normal. Patient states abdominal pain is improved, he had two episodes of nausea/vomiting/heaving overnight improved with antiemetics. Patient had BM yesterday but none today. He is very concerned about this and wanted to forgo discharge until he has one more BM. RN called a short while ago and stated patient hypertensive with headache. Tylenol and hydralazine ordered. Review of Systems Review of Systems: All systems reviewed & are unremarkable except as noted in HPI and below Exam Const: General: cooperative, comfortable, no acute distress, well developed, alert, awake, Physically active, average body habitus and well nourished Nutritional Appearance: average body habitus and well nourished Orientation/consciousness: oriented to person, oriented to place, oriented to time and patient oriented x3 Limitations: no limitations HENMT: Head: normal to inspection, No palpable skull fracture present, normocephalic and atraumatic Ears: hearing grossly normal bilaterally and external ears normal Face/Nose/Sinus: Normal external nose present and Normal nares present Eyes: General: appearance normal, both eyes and all related structures Alignment and Position: alignment normal Periorbital: periorbital findings normal Eyelids: eyelids normal Sclera: sclerae normal Pupils: Equal, round and reactive pupils present EOM: EOMs intact bilaterally Neck: Neck: normal visual inspection, full ROM, no lymphadenopathy, trachea midline and supple Chest: Chest palpation & inspection: normal inspection of the chest Resp: Effort & Inspection: normal respiratory effort Auscultation: clear to a
[2023-03-07] MEDS: ACETAMINOPHEN 500 MG TABLET 1000 MG PO (16:08)
[2023-03-07] MEDS: hydrALAZINE HCL 20 MG/ML VIAL 10 MG IV PUSH (16:09)
[2023-03-07 17:17] LABS: Glucose Point of Care 117 mg/dl (65-105)
[2023-03-07 21:56] LABS: Glucose Point of Care 148 mg/dl (65-105)
[2023-03-08 01:10] VITALS: BP 169/107
[2023-03-08] MEDS: hydrALAZINE HCL 20 MG/ML VIAL 10 MG IV PUSH ×2 (01:13→05:53)
[2023-03-08] MEDS: ACETAMINOPHEN 500 MG TABLET 1000 MG PO ×2 (01:13→08:52)
[2023-03-08] MEDS: SODIUM CHLORIDE 0.9% IV 1,000 ML 100 ML IV CONT (04:07)
[2023-03-08 05:11] VITALS: BP 181/112; PULSE 93; RESP 18; TEMP 36.3; O2SAT 100
[2023-03-08 05:38] LABS: Hematocrit 41.8 % (42.0-52.0); Hemoglobin 13.7 g/dL (14.0-18.0); Mean Corpuscular HGB Conc 32.8 g/dl (32-36); Mean Corpuscular Hemoglobin 25.7 pg (26-34); Mean Corpuscular Volume 78.4 fl (80-100); Mean Platelet Volume 10.9 fl (7.4-10.4); Platelet Count Result 288 k/mm3 (150-375); Red Blood Count 5.33 M/mm3 (4.6-6.20); Red Cell Distribution Width 14.9 % (11.5-14.5)
[2023-03-08 05:55] LABS: Alanine Aminotransferase 21 U/L (6-50); Albumin Level 4.1 g/dL (3.5-5.1); Alkaline Phosphatase 47 U/L (38-126); Anion Gap 12 mmol/L (8-16); Aspartate Amino Transferase 19 U/L (17-59); Bilirubin,Total 0.7 mg/dL (0.2-1.3); Blood Urea Nitrogen 7 mg/dL (9-20); Calcium 8.8 mg/dL (8.4-10.2); Carbon Dioxide 18 mmol/L (22-30); Chloride 106 mmol/L (98-107); Estimated CRCL calculation 110 ml/min; Estimated Glomerular Filt Rate > 60; Glucose 150 mg/dL (65-110); Lipase 966 U/L (23-300); Potassium 3.4 mmol/L (3.4-5.0); Sodium 136 mmol/L (137-145)
--- NOTE | 2023-03-08 07:20 | WPDANESPN ---
Anes - Prog Note Post-Op Date/Time: 03/08/23 07:20 Cardiovascular status: normal Respiratory status: normal Airway patency: baseline Mental status: baseline Post-Op hydration status: normal Vital Signs: Last Vital Signs Temp 97.3 F L 03/08/23 05:11 Pulse 93 03/08/23 05:11 Resp 18 03/08/23 05:11 BP 181/112 H 03/08/23 05:11 Pulse Ox 100 03/08/23 05:11 O2 Del Method Room Air 03/07/23 10:00 Pain Score (VAS): 0/10 I/O: Intake & Output 03/07/23 03/07/23 03/08/23 15:59 23:59 07:59 Intake Total 6173 424 3283 Output Total 600 Balance 1290 240 690 Laboratory Tests 03/08/23 05:19 03/08/23 05:19 03/07/23 03/07/23 03/07/23 08:22 09:52 11:57 WBC RBC Hgb Hct MCV MCH MCHC RDW Plt Count MPV Sodium Potassium Chloride Carbon Dioxide Anion Gap BUN Creatinine Estim Creat Clear Calc Estimated GFR Glucose POC Capillary Glucose 141 H 126 H 212 H Calcium Total Bilirubin AST ALT Alkaline Phosphatase Total Protein Albumin Lipase 03/07/23 03/07/23 03/08/23 17:04 21:38 05:19 WBC 9.0 RBC 5.33 Hgb 13.7 L Hct 41.8 L MCV 78.4 L MCH 25.7 L MCHC 32.8 RDW 14.9 H Plt Count 288 MPV 10.9 H Sodium 136 L Potassium 3.4 Chloride 106 Carbon Dioxide 18 L Anion Gap 12 BUN 7 L Creatinine 0.70 Estim Creat Clear Calc 110 Estimated GFR > 60 Glucose 150 H POC Capillary Glucose 117 H 148 H Calcium 8.8 Total Bilirubin 0.7 AST 19 ALT 21 Alkaline Phosphatase 47 Total Protein 7.0 Albumin 4.1 Lipase 966 H Post-procedural complaints: none Patient Feedback: Patient satisfied with anesthetic care.
--- NOTE | 2023-03-08 07:27 | PM.IMPN ---
Progress Note: A&P Assessment and Plan (1) Nausea and vomiting in adult: Code(s): R11.2 - Nausea with vomiting, unspecified Status: Acute Assessment and Plan: Third visit to the ER 1st hospitalization for this complaint status post initiation of Rybelsus. Patient was treated with IV fluids and anti emetics kept NPO overnight. This morning he states he feels well no further nausea or vomiting. Plan is to start clear liquid diet and advanced as tolerated. Patient noted to be lacto-ovo vegetarian. Tolerating diet well. Advancing well. (2) Elevated lipase: Code(s): R74.8 - Abnormal levels of other serum enzymes Status: Acute Assessment and Plan: Initial lipase elevated slowly coming down will continue daily draws until discharge or normal finding. -lipase today is increased to 966 from 493 (3) Diabetes: Code(s): E11.9 - Type 2 diabetes mellitus without complications Status: Acute Assessment and Plan: Patient on several medications for diabetes including recently starting Rybelsus. Will use Accu-Chek with sliding scale insulin and other home medications but discontinue Rybelsus. A1c 7.7 (4) HTN (hypertension), malignant: Code(s): I10 - Essential (primary) hypertension Status: Acute Assessment and Plan: Elevated this afternoon, hydralazine ordered as well as Tylenol for headache. -SBP 160-180s overnight -restarted home amlodipine dose this morning 03/08. Lisinopril 20 mg was already restarted on admission. (5) Hyperlipidemia type II: Code(s): E78.01 - Familial hypercholesterolemia Status: Acute Assessment and Plan: Continue home medications. Subjective Date/time seen: 03/08/23 07:27 Interval history: HPI from chart: This is a 57-year-old male patient who has a history of uncontrolled diabetes and hypertension.? The patient has been have nausea vomiting and the stated he had some diarrhea too.? He had non bilious non bloody emesis for the past 2 days.? His states that she he has had a peptic ulcer in the past.? No fever or chills.? No shortness of breath.? His white count is 12.3.? Sodium is 130.? Glucose is 167.? Troponin is negative x2.? The patient has cloudy urine with 1+ protein 3+ glucose and 1+ ketones.? Head CT was read as followsCerebral atherosclerosis and chronic small vessel ischemic changes of the cerebral white matter No acute intracranial finding.? Chest abdominal x-rayNormal appendix; no bowel obstruction or free air Small sliding hiatal hernia.? He was given IV fluids, Pepcid Zofran, Reglan and morphine in the emergency room.? The patient was made NPO.? He is being admitted to observation status on the date of service of 03/05/2023. Interval History: 03/06 Rounding: Patient seen seated upright in bed. He states that his nausea and vomiting have improved, he has no pain. He states that he is feeling much better. Patient reports that this is his third ER visit this week, first hospitalization for this problem. Patient notes he started Rebelsys recently and we suspect that his lipase elevation along with recurrent nausea and vomiting is related to this medication. Patient instructed to stop this medication effective immediately. Patient denies any other complaints or symptoms. 03/07 Rounding: Patient back to floor after EGD. EGD noted to be normal. Patient states abdominal pain is improved, he had two episodes of nausea/vomiting/heaving overnight improved with antiemetics. Patient had BM yesterday but none today. He is very concerned about this and wanted to forgo discharge until he has one more BM. 03/08 Objective Data Vital Signs Vital Signs: Vital Signs - 24 hr 03/07/23 08:10 03/07/23 09:16 03/07/23 09:26 Temperature 97.6 F Pulse Rate 97 88 85 Respiratory Rate 18 20 20 Blood Pressure 163/107 H 141/104 H 145/100 H Pulse Oximetry 100 100 100 Oxygen Delivery Room Air Room Air Room Air 03/07/23 09
--- NOTE | 2023-03-08 07:54 | WPDGIPROGNO ---
Progress Note: A&P Assessment and Plan (1) Elevated lipase: Code(s): R74.8 - Abnormal levels of other serum enzymes Status: Acute Assessment and Plan: Elevated lipase noted. Increased today to 900. Imaging studies show pancreas to be unremarkable. Clinically no signs of pancreatitis. Would recommend following this conservatively as an outpatient. Advance diet. Low-fat diet to continue because of his history of hyperlipidemia. Lipid level does not appear high enough to cause pancreatitis. Plan to continue diet discharge follow-up lipase in 1 week. Hold Rybelsus patient does have history of frequent alcohol use. Alcohol abstinence strongly encourage does this could contribute to his elevated lipase and his nausea vomiting. (2) Nausea and vomiting in adult: Code(s): R11.2 - Nausea with vomiting, unspecified Status: Acute Assessment and Plan: Nausea vomiting resolved. Etiology unclear. Symptoms may be related to poor gastric emptying that began when Rybelsus started for diabetes. Perhaps we should hold this medicine for while. Before considering restarting. (3) Diabetes: Code(s): E11.9 - Type 2 diabetes mellitus without complications Status: Acute Assessment and Plan: Patient with diabetes. He may be prone to poor gastric emptying particularly with new medications such as Rybelsus. We should hold this medicine for now. Subjective Date/time seen: 03/08/23 07:54 Interval history: Patient alert comfortable this morning. Denies abdominal pain. No nausea or vomiting. Anxious to go home. Review of Systems Review of Systems: Review of systems noncontributory. Exam Narrative: Physical exam reveals patient to be alert. Vital signs stable. HEENT exam unremarkable. Lungs are clear. Heart without murmur. Abdomen is benign. Soft bowel sounds present nontender with no organomegaly. Objective Data Vital Signs Vital Signs: Vital Signs - 24 hr 03/07/23 08:10 03/07/23 09:16 03/07/23 09:26 Temperature 97.6 F Pulse Rate 97 88 85 Respiratory Rate 18 20 20 Blood Pressure 163/107 H 141/104 H 145/100 H Pulse Oximetry 100 100 100 Oxygen Delivery Room Air Room Air Room Air 03/07/23 09:36 03/07/23 10:00 03/07/23 14:01 Temperature 97.7 F Pulse Rate 86 98 Respiratory Rate 22 H 18 Blood Pressure 149/101 H 124/82 Pulse Oximetry 100 99 Oxygen Delivery Room Air Room Air 03/07/23 15:50 03/07/23 17:41 03/07/23 20:07 Temperature 97 F L Pulse Rate 83 Respiratory Rate 18 Blood Pressure 166/110 H 149/99 H 149/98 H Pulse Oximetry 100 Oxygen Delivery 03/08/23 01:10 03/08/23 05:11 Temperature 97.3 F L Pulse Rate 93 Respiratory Rate 18 Blood Pressure 169/107 H 181/112 H Pulse Oximetry 100 Oxygen Delivery Intake/Output Intake/Output: Intake & Output 03/05/23 03/06/23 03/07/23 03/08/23 23:59 23:59 23:59 23:59 Intake Total 1000 3650 2820 1290 Output Total 600 Balance 1000 3650 2820 690 Meds/Results Medications: Active Medications Generic Name Dose Route Start Last Admin Trade Name Freq PRN Reason Stop Dose Admin Acetaminophen 1,000 mg 03/07/23 15:51 03/08/23 01:13 Acetaminophen 500 Mg Tablet PO 1,000 mg Q6H PRN Administration MILD Pain or Fever Amlodipine Besylate 10 mg 03/08/23 09:00 Amlodipine Besylate 5 Mg Tablet PO DAILY TERRY Dextrose 12.5 gm 03/05/23 22:27 Dextrose 50% 25 Gm/50 Ml Syringe IV PUSH PRN PRN Hypoglycemia Protocol Famotidine 20 mg 03/06/23 09:00 03/07/23 21:50 Famotidine 20 Mg/2 Ml Vial IV PUSH 20 mg Q12HR TERRY Administration Glucagon 1 mg 03/05/23 22:08 Glucagon For Inj 1 Mg Vial IM PRN PRN Hypoglycemia Protocol Glucose 15 gm 03/05/23 22:08 Glucose Oral Gel 15 Gm Of Glucse In 37.5 Gm Tube PO PRN PRN Hypoglycemia Protocol Hydralazine HCl 10 mg 03/07/23 15:51 02/12
[2023-03-08 08:46] LABS: Glucose Point of Care 204 mg/dl (65-105)
[2023-03-08] MEDS: FAMOTIDINE 20 MG/2 ML VIAL IV PUSH (08:48)
[2023-03-08] MEDS: lisinopriL 20 MG TABLET PO (08:48)
[2023-03-08] MEDS: INSULIN ASPART (*BKC) 100 UNITS/ML SUB-Q (08:48)
[2023-03-08] MEDS: amLODIPine BESYLATE 5 MG TABLET 10 MG PO (08:48)
[2023-03-08 12:14] VITALS: BP 129/96
[2023-03-08 12:17] LABS: Glucose Point of Care 148 mg/dl (65-105)
--- NOTE | 2023-03-08 13:49 | PM.DS ---
DS: Admitting Diagnosis Discharge Date MondayMarch 08 Admitting Diagnosis Acute pancreatitis DS: Discharge Diagnosis Discharge Diagnosis (1) Nausea and vomiting in adult: Code(s): R11.2 - Nausea with vomiting, unspecified Status: Acute Assessment and Plan: Third visit to the ER 1st hospitalization for this complaint status post initiation of Rybelsus. Patient was treated with IV fluids and anti emetics kept NPO overnight. This morning he states he feels well no further nausea or vomiting. Plan is to start clear liquid diet and advanced as tolerated. Patient noted to be lacto-ovo vegetarian. Tolerating diet well. Advancing well. (2) Elevated lipase: Code(s): R74.8 - Abnormal levels of other serum enzymes Status: Acute Assessment and Plan: Initial lipase elevated slowly coming down will continue daily draws until discharge or normal finding. -lipase today is increased to 966 from 493 (3) Diabetes: Code(s): E11.9 - Type 2 diabetes mellitus without complications Status: Acute Assessment and Plan: Patient on several medications for diabetes including recently starting Rybelsus. Will use Accu-Chek with sliding scale insulin and other home medications but discontinue Rybelsus. A1c 7.7 (4) HTN (hypertension), malignant: Code(s): I10 - Essential (primary) hypertension Status: Acute Assessment and Plan: Elevated this afternoon, hydralazine ordered as well as Tylenol for headache. -SBP 160-180s overnight -restarted home amlodipine dose this morning 03/08. Lisinopril 20 mg was already restarted on admission. (5) Hyperlipidemia type II: Code(s): E78.01 - Familial hypercholesterolemia Status: Acute Assessment and Plan: Continue home medications. DS: Summary Hospital Course Reason for hospitalization: Acute pancreatitis Hospital Course: This is a 57-year-old male patient who has a history of uncontrolled diabetes and hypertension.? The patient has been have nausea vomiting and the stated he had some diarrhea too.? He had non bilious non bloody emesis for the past 2 days.? His states that she he has had a peptic ulcer in the past.? No fever or chills.? No shortness of breath.? His white count is 12.3.? Sodium is 130.? Glucose is 167.? Troponin is negative x2.? The patient has cloudy urine with 1+ protein 3+ glucose and 1+ ketones.? Head CT was read as followsCerebral atherosclerosis and chronic small vessel ischemic changes of the cerebral white matter No acute intracranial finding.? Chest abdominal x-rayNormal appendix; no bowel obstruction or free air Small sliding hiatal hernia.? He was given IV fluids, Pepcid Zofran, Reglan and morphine in the emergency room.? The patient was made NPO.? He is being admitted to observation status on the date of service of 03/05/2023. Interval History: 03/06 Rounding: Patient seen seated upright in bed. He states that his nausea and vomiting have improved, he has no pain. He states that he is feeling much better. Patient reports that this is his third ER visit this week, first hospitalization for this problem. Patient notes he started Rebelsys recently and we suspect that his lipase elevation along with recurrent nausea and vomiting is related to this medication. Patient instructed to stop this medication effective immediately. Patient denies any other complaints or symptoms. 03/07 Rounding:? Patient back to floor after EGD. EGD noted to be normal. Patient states abdominal pain is improved, he had two episodes of nausea/vomiting/heaving overnight improved with antiemetics. Patient had BM yesterday but none today. He is very concerned about this and wanted to forgo discharge until he has one more BM. 03/08: Status at Discharge Cognitive/behavioral status at discharge: Independent, A&O x4 Time Spent with Patient Time attestation: Total time spent providing and/or coordinating discharge services:40 Exa
== END 2023-03-08 14:40 | disposition home or self-care (01) ==
LOC: ANHED 18:45 → ANH2MED 19:49
PROVIDERS: Emergency Medicine; Internal Medicine Gastroenterology; Nurse Practitioner; Admitting Provider Hospitalist; Emergency Provider Emergency Medicine; PCP Family Medicine; Visit Provider Student in an Organized Health Care Education/Training Program
PROC: 0DJ08ZZ Inspection of Upper Intestinal Tract, Via Natural or Artificial Opening Endoscopic (ICD-10-PCS; CPT 43235; principal; 2023-03-07 13:45)
DX: R10.13 Epigastric pain (principal); R11.2 Nausea with vomiting, unspecified; Z71.1 Person with feared health complaint in whom no diagnosis is made; K59.00 Constipation, unspecified; R74.8 Abnormal levels of other serum enzymes; E11.65 Type 2 diabetes mellitus with hyperglycemia; R14.3 Flatulence; K85.90 Acute pancreatitis without necrosis or infection, unspecified; K44.9 Diaphragmatic hernia without obstruction or gangrene; I67.2 Cerebral atherosclerosis; I10 Essential (primary) hypertension; R94.31 Abnormal electrocardiogram [ECG] [EKG]; E78.01 Familial hypercholesterolemia; E66.9 Obesity, unspecified; Z68.33 Body mass index [BMI] 33.0-33.9, adult; M46.04 Spinal enthesopathy, thoracic region; R90.82 White matter disease, unspecified; Z87.11 Personal history of peptic ulcer disease; D72.829 Elevated white blood cell count, unspecified; E78.5 Hyperlipidemia, unspecified; F10.90 Alcohol use, unspecified, uncomplicated; Y90.0 Blood alcohol level of less than 20 mg/100 ml; F17.290 Nicotine dependence, other tobacco product, uncomplicated; Z79.82 Long term (current) use of aspirin; Z79.84 Long term (current) use of oral hypoglycemic drugs; Z79.899 Other long term (current) drug therapy
CPT/HCPCS: 43239; 36415; 70450; 71046; 71275; 74174; 80053; 80061; 80307; 81001; 82274; 82948; 83036; 83605; 83690; 83735; 84443; 84484; 85025; 85027; 87081; 93005; 96361; 96374; 96375; 96376; 99285; A9270; G0378; J0360; J1815; J2001; J2060; J2270; J2405; J2704; J2765; J7030; J7120; Q9967